=== PATIENT | female | born 1995 | race African-American/Black ===

== ENCOUNTER 2017-01-31 18:12 | Day surgery (SDC) | payer OTHER ==
[~2017-01-31] VITALS: Ht 162.6 cm; Wt 61.2 kg
[2017-01-31] MEDS ORDERED: ADDE5TAB5 PO (18:19)
[2017-01-31] MEDS ORDERED: MORPHINE 2 MG/ML 1ML SYRINGE IV ONE (18:45)
[2017-01-31] MEDS ORDERED: NS 1,000 ML IV ONE (18:45)
[2017-01-31 19:15] LABS: BASO # 0.1 K/mm3 (0.0-0.2); BASO % 0.6 % (0.0-1.0); EOS # 0.1 K/mm3 (0.0-0.50); EOS % 1.3 % (0.0-3.0); LARGE UNSTAINED CELL # 0.1 K/mm3 (0.0-0.4); LYMPH # 1.8 K/mm3 (1.5-6.5); LYMPH % 18.3 % (24.0-44.0); MEAN CORPUSCULAR HEMOGLOBIN 30.4 pg (27.0-33.0); MEAN CORPUSCULAR HGB CONC 33.3 g/dl (32.0-36.5); MEAN CORPUSCULAR VOLUME 91.3 fl (80.0-96.0); MONO # 0.3 K/mm3 (0.0-0.8); MONO % 2.8 % (0.0-5.0); NEUTROPHILS # 7.3 K/mm3 (1.8-7.7); NEUTROPHILS % 75.9 % (36.0-66.0); PLATELET COUNT, AUTOMATED 267 k/mm3 (150-450); WHITE BLOOD COUNT 9.6 K/mm3 (4.0-10.0)
[2017-01-31 19:26] LABS: ANION GAP 7 MEQ/L (8-16); BLOOD UREA NITROGEN 8 MG/DL (7-18); CARBON DIOXIDE LEVEL 28 MEQ/L (21-32); CHLORIDE LEVEL 103 MEQ/L (98-107); CREATININE FOR GFR 0.58 MG/DL (0.55-1.02); GLOMERULAR FILTRATION RATE > 60.0 (>60); GLUCOSE, FASTING 92 MG/DL (70-105); POTASSIUM SERUM 3.5 MEQ/L (3.5-5.1); SODIUM LEVEL 138 MEQ/L (136-145)
--- NOTE | 2017-01-31 19:50 | REPUSA ---
Clinical history: bleeding. Findings: Real-time transabdominal and transvaginal ultrasound images of the pelvis were obtained. An anteverted uterus is noted, measuring 10.0 x 5.2 x 6.3 cm. The uterus demonstrates normal echotextur e and echogenicity. The endometrial stripe measures 34 mm. The endometrial cavity is thickened and he terogeneous. The right ovary measures 2.7 x 2.3 x 3.4 cm. The left ovary measures 2.8 x 2.6 x 4.0 c m. No adnexal masses are seen. Color Doppler flow is seen within both ovaries. There is no evidence o f free fluid. Impression: Heterogeneous, thickened endometrial cavity. This likely represents hemorrhagic material, but retained products of conception cannot be excluded. Follow-up is suggested as clinically indicat ed.
[2017-01-31] MEDS ORDERED: IBUPOTC PO (20:38)
[2017-01-31] MEDS ORDERED: MIDAZOLAM INJ 2 MG/2 ML VIAL (J2250) As Ordered ONE (21:56)
[2017-01-31] MEDS ORDERED: LIDOCAINE 2% INJ 100 MG/5 ML SDV (FOR ANES.) As Ordered ONE (21:56)
[2017-01-31] MEDS ORDERED: PROPOFOL 200 MG/20 ML VIAL As Ordered ONE (21:56)
[2017-01-31] MEDS ORDERED: fentaNYL 100 MCG/2 ML INJECTION (J3010) As Ordered ONE (21:56)
[2017-01-31] MEDS ORDERED: ACETAMINOPHEN 650 MG SUPP As Ordered ONE (21:58)
[2017-01-31] MEDS ORDERED: OXYTOCIN INJ 10 UNITS/ML VIAL (J2590) As Ordered ONE ×2 (22:26→22:28)
[2017-01-31] MEDS ORDERED: KETOROLAC 60 MG/2 ML VIAL (J1885) As Ordered ONE (22:28)
[2017-01-31] MEDS ORDERED: ONDANSETRON 4MG/2ML VIAL (J2405) As Ordered ONE (22:28)
[2017-01-31] MEDS ORDERED: NORCO, ANEXSIA 5/325MG TABLET (HYDROcodone/ACETAMINOPHEN) PO PRN (23:00)
[2017-01-31] MEDS ORDERED: fentaNYL 100 MCG/2 ML INJECTION (J3010) IV PRN (23:00)
[2017-01-31] MEDS ORDERED: KETOROLAC 30 MG/ML VIAL (J1885) IV PRN (23:00)
[2017-01-31] MEDS ORDERED: ONDANSETRON 4MG/2ML VIAL (J2405) IV PRN (23:00)
[2017-01-31] MEDS: RHOGAM 300 MCG (1500 IU) INJ (J2790) IM SCH ×2 (23:13→23:37)
[2017-01-31] MEDS ORDERED: MATE ADAPTER XX SCH (23:15)
[2017-01-31] MEDS ORDERED: OXYTOCIN XX SCH (23:15)
[2017-01-31] MEDS ORDERED: LR XX SCH (23:15)
[2017-01-31 23:30] VITALS: BP 107/57
[2017-02-01] VITALS: BP 103/56
[2017-02-01 00:30] VITALS: BP 103/51
[2017-02-01 01:16] VITALS: BP 99/51
--- NOTE | 2017-02-02 07:37 | RO ---
DATE OF PROCEDURE: 02/02/2017 PREOPERATIVE DIAGNOSIS: Missed POSTOPERATIVE DIAGNOSIS: Missed . OPERATION PROPOSED: Suction curettage. OPERATION PERFORMED: Suction curettage. SURGEON: Ayan Almonte MD LAWYER: ANESTHESIA: General. ESTIMATED BLOOD LOSS: 100 mL. DESCRIPTION OF PROCEDURE: Under adequate anesthesia and time-out, sequentials on board, acetaminophen suppository 1300 mg per rectum, no antibiotics required. Patient in lithotomy position. Shields catheter ablating for 150 mL of clear urine. Weighted speculum in vagina. Single-tooth tenaculum on the anterior lip of the cervix. Moderate amount of clots were noted in the vagina. These were evacuated. Uterus was already dilated to a Hoda 10. Polyp forceps was removed and the fetus was removed and sent to pathology under separate cover. Curettage of the cavity to smooth. Uterus placed in anatomical position, well contracted under Pitocin. The patient is Rh negative, will receive RhoGAM in recovery. Instrument and pad count correct, and the patient was taken to recovery in good condition. MICAELA
== END 2017-02-01 01:20 | disposition home or self-care (01) ==
LOC: M ED 18:49 → M SDC 21:26 → M PED 22:00 → M SDC 02-01 01:20
PROVIDERS: ATTEND Obstetrics & Gynecology
DX: O02.1 Missed abortion (principal); O36.0110 Maternal care for anti-D [Rh] antibodies, first trimester, not applicable or unspecified; Z3A.11 11 weeks gestation of pregnancy
CPT/HCPCS: 36415; 59820; 76801; 76817; 80048; 84702; 85025; 86850; 86900; 86901; 88305; 93976; 99285; J1885; J2250; J2405; J2590; J2790; J3010

== ENCOUNTER 2017-05-08 10:58 | Emergency (ER) | payer OTHER ==
[~2017-05-08] VITALS: Ht 160 cm; Wt 62.7 kg
[~2017-05-08 10:58] MED LIST: ADDE1TAB14 PO; IBUPOTC PO
[2017-05-08 12:01] LABS: ADD MANUAL DIFFER YES; MEAN CORPUSCULAR HEMOGLOBIN 26.7 pg (27.0-33.0); MEAN CORPUSCULAR HGB CONC 32.6 g/dl (32.0-36.5); MEAN CORPUSCULAR VOLUME 81.8 fl (80.0-96.0); PLATELET COUNT, AUTOMATED 282 k/mm3 (150-450); RED CELL DISTRIBUTION WIDTH 14.6 % (11.5-14.5); WHITE BLOOD COUNT 5.8 K/mm3 (4.0-10.0)
[2017-05-08 12:30] LABS: ANION GAP 8 MEQ/L (8-16); BLOOD UREA NITROGEN 8 MG/DL (7-18); CALCIUM LEVEL 8.7 MG/DL (8.5-10.1); CARBON DIOXIDE LEVEL 26 MEQ/L (21-32); CHLORIDE LEVEL 109 MEQ/L (98-107); CREATININE FOR GFR 0.56 MG/DL (0.55-1.02); GLOMERULAR FILTRATION RATE > 60.0 (>60); GLUCOSE, FASTING 79 MG/DL (70-105); POTASSIUM SERUM 3.9 MEQ/L (3.5-5.1); SODIUM LEVEL 143 MEQ/L (136-145)
[2017-05-08 12:38] LABS: CONTROL LINE HCG INT CTR LINE PRESENT
[2017-05-08 12:46] LABS: EOSINOPHILS 1 % (0-5)
[2017-05-08] MEDS ORDERED: ISOVUE-370 76% 100ML VIAL (Q9967) As Ordered ONE (13:23)
--- NOTE | 2017-05-08 13:26 | REP ---
CHEST, TWO VIEWS: No comparison. There is no evidence of acute infiltrate. No pleural effusion is seen. The heart is normal in size. The mediastinal silhouette is unremarkable. The visualized osseous structures are intact. IMPRESSION: No acute pulmonary disease. Signed by Wally Velasquez MD 05/08/2017 01:32 P
--- NOTE | 2017-05-08 14:39 | REP ---
CT ANGIO CHEST: TECHNIQUE: Axial contrast enhanced images from the thoracic inlet to the upper abdomen using 100 mL Isovue 370 intravenous contrast material with multiplanar reformations. The lungs are free of infiltrate or other lung opacities. There is no CT evidence of pulmonary embolism. There is no evidence of thoracic aortic aneurysm or dissection. The heart is normal in size. There is no pleural or pericardial effusion. There is no evidence of mediastinal or hilar adenopathy. The visualized upper abdominal structures are unremarkable. IMPRESSION: Negative CT angiogram of the chest. Signed by Wally Velasquez MD 05/09/2017 05:02 P
[2017-05-08] MEDS ORDERED: NS 1,000 ML IV ONE ×2 (15:15→17:30)
[2017-05-08 18:33] VITALS: BP 121/73
--- NOTE | 2017-05-08 20:58 | ECGEPIP ---
Stationary ECG Study [facility] - ED Test Date: 2017-05-08 Pat Name: JULIUS SINHA Department: Room: - Gender: F [employer]: ct : 1995 Requested By: Rosanna Graham Order Number: [id number] Reading MD: Rosanna Graham Measurements Intervals [place] Rate: 74 P: 30 [place]: 176 QRS: 34 QRSD: 84 T: 24 QT: 359 QTc: 398 Interpretive Statements SINUS RHYTHM NO PRIOR FOR COMPARISON Electronically Signed On 05-08-2017 20:57:59 EDT by Rosanna Graham
== END 2017-05-08 18:37 | disposition home or self-care (01) ==
LOC: M ED 10:58
DX: R00.0 Tachycardia, unspecified (principal); Z79.3 Long term (current) use of hormonal contraceptives
CPT/HCPCS: 71020; 71275; 80048; 84443; 84703; 85025; 93005; 96361; 99285; Q9967

== ENCOUNTER 2017-10-27 11:04 | Day surgery (SDC) | payer OTHER ==
[2017-10-27] MEDS: NS 1,000 ML IV (12:00)
[2017-10-27] MEDS ORDERED: PROPOFOL 500 MG/50 ML VIAL As Ordered (12:48)
[2017-10-27] MEDS ORDERED: LIDOCAINE 2% INJ 100 MG/5 ML SDV (FOR ANES.) As Ordered (12:48)
== END 2017-10-27 13:29 | disposition home or self-care (01) ==
LOC: M OPP 11:04
DX: R10.84 Generalized abdominal pain (principal); K92.1 Melena; K58.1 Irritable bowel syndrome with constipation; K64.8 Other hemorrhoids; Q43.8 Other specified congenital malformations of intestine; F90.9 Attention-deficit hyperactivity disorder, unspecified type; Z79.899 Other long term (current) drug therapy
CPT/HCPCS: 45378